=== PATIENT | female | born 1975 | race Two or more races ===

== ENCOUNTER 2017-12-30 09:13 | Emergency (ER) | payer MEDICAID ==
[~2017-12-30] VITALS: Ht 167.6 cm; Wt 97.5 kg
[2017-12-30 10:29] LABS: Basophils # (auto) 0 uL; Basophils % (auto) 0.5 % (0.0-2.0); Eosinophils # (auto) 0 uL; Eosinophils % (auto) 0.7 % (0.0-7.0); Hemoglobin 14.1 g/dL (12.2-16.2); Lymphocytes # (auto) 1.3 uL; Lymphocytes % (auto) 21.3 % (10.0-50.0); Mean Corpuscular Hemoglobin 28.7 pg (28.0-32.0); Mean Corpuscular Hgb Conc. 32.9 g/dL (32.0-36.0); Mean Corpuscular Volume 87.2 fL (80.0-100.0); Monocytes # (auto) 0.6 uL; Monocytes % (auto) 8.7 % (0.0-12.0); Neutrophils # (auto) 4.4 uL; Neutrophils % (auto) 68.8 % (37.0-80.0); Platelet Count (auto) 243 10^3/uL (140-450); Red Blood Cells 4.92 10^6/uL (4.0-5.20); Red Cell Distribution Width 15.8 % (11.8-14.3); White Blood Cell 6.3 10^3/uL (4.4-10.8)
[2017-12-30 10:45] LABS: Urine Specific Gravity 1.022 (1.001-1.035)
[2017-12-30 10:46] LABS: Urine Blood 1+ /uL (Negative)
[2017-12-30 10:53] LABS: Urine WBC 3 /hpf (0 - 5)
[2017-12-30 10:54] LABS: Urine Bacteria MANY /hpf (None Seen); Urine Mucus FEW (None Seen)
[2017-12-30 10:55] LABS: Albumin 3.8 g/dL (3.4-5.0); BUN/Creatinine Ratio 12.7; Calcium 8.8 mg/dL (8.5-10.1); Potassium 3.7 mmol/L (3.5-5.1)
[2017-12-30] MEDS ORDERED: cefTRIAXone W LIDOCAINE 1 GM IM IM ONE (11:00)
[2017-12-30] MEDS ORDERED: cefTRIAXone 1GM/10ml IVPUSH 10 ML IV ONE (11:15)
[2017-12-30 11:56] VITALS: BP 144/89
== END 2017-12-30 12:00 | disposition home or self-care (01) ==
LOC: EDBD 09:13 → ER 09:13
DX: K80.20 Calculus of gallbladder without cholecystitis without obstruction (principal)
CPT/HCPCS: 36415; 74176; 80053; 81001; 81025; 85025; 96374; J0696

== ENCOUNTER 2018-10-25 22:10 | Emergency (ER) | payer MEDICAID ==
[~2018-10-25] VITALS: Ht 162.6 cm; Wt 99.9 kg
[2018-10-25 23:55] LABS: Urine Bacteria FEW /hpf (None Seen); Urine Blood Negative /uL (Negative); Urine Mucus FEW (None Seen); Urine Specific Gravity 1.025 (1.001-1.035); Urine WBC 3 /hpf (0 - 5)
[2018-10-26 00:25] LABS: Basophils # (auto) 0 uL; Basophils % (auto) 0.3 % (0.0-2.0); Eosinophils # (auto) 0 uL; Eosinophils % (auto) 0.6 % (0.0-7.0); Hematocrit 44.7 % (36.0-46.0); Hemoglobin 15.3 g/dL (12.2-16.2); Lymphocytes # (auto) 1.2 uL; Lymphocytes % (auto) 15.4 % (10.0-50.0); Mean Corpuscular Hemoglobin 31.8 pg (28.0-32.0); Mean Corpuscular Hgb Conc. 34.3 g/dL (32.0-36.0); Mean Corpuscular Volume 92.9 fL (80.0-100.0); Monocytes # (auto) 0.5 uL; Monocytes % (auto) 6.6 % (0.0-12.0); Neutrophils # (auto) 6.2 uL; Neutrophils % (auto) 77.1 % (37.0-80.0); Nucleated Red Blood Cells % 0.1 %; Platelet Count (auto) 250 10^3/uL (140-450); Red Blood Cells 4.81 10^6/uL (4.0-5.20); Red Cell Distribution Width 12.7 % (11.8-14.3)
[2018-10-26 00:40] LABS: BUN/Creatinine Ratio 16.5; Calcium 8.4 mg/dL (8.5-10.1); Potassium 4.2 mmol/L (3.5-5.1)
[2018-10-26 00:43] LABS: Bilirubin, Total 0.5 mg/dL (0.2-1.0); Total Protein 8.2 g/dL (6.4-8.2)
[2018-10-26] MEDS ORDERED: ONDANSETRON HCL 4 MG/2 ML VIAL IV ONE (04:30)
[2018-10-26] MEDS ORDERED: MORPHINE SULFATE 4 MG/ML SYR/VIAL IV ONE ×2 (04:30→05:30)
[2018-10-26 04:52] VITALS: BP 129/92
== END 2018-10-26 05:42 | disposition home or self-care (01) ==
LOC: ER 22:10
DX: K80.20 Calculus of gallbladder without cholecystitis without obstruction (principal); Z98.51 Tubal ligation status
CPT/HCPCS: 36415; 74176; 80053; 81001; 83690; 85025; 96374; 96375; 96376; 99284; J2270; J2405

== ENCOUNTER → 2021-10-20 09:11 | Emergency (ER) | payer MEDICAID ==
[~2021-10-20] VITALS: Ht 165.1 cm; Wt 87.1 kg
[~2021-10-20 09:11] MED LIST: ALUM & MAG HYDROX-SIMETH LIQ(MAALOX) 30 ML PO ONE; FAMO20TA10 PO; FAMOTIDINE (10MG/ML) 2ML VL IV ONE; IOHEXOL 300 MG/ML 100ML BOTTLE IJ ONE; MORPHINE SULFATE 4 MG/ML SYR/VIAL IV ONE; ONDA-155 PO; ONDANSETRON HCL 4 MG/2 ML VIAL IV ONE
[2021-10-20 10:48] LABS: Basophils # (auto) 0.1 10 ^3/uL (0-0.2); Basophils % (auto) 1.2 % (0.0-2.0); Eosinophils # (auto) 0.4 10 ^3/uL (0-0.8); Eosinophils % (auto) 5.8 % (0.0-7.0); Hematocrit 44.2 % (36.0-46.0); Hemoglobin 15.4 g/dL (12.2-16.2); Lymphocytes # (auto) 1.9 10 ^3/uL (0.4-5.4); Lymphocytes % (auto) 28.7 % (10.0-50.0); Mean Corpuscular Hemoglobin 31.4 pg (28.0-32.0); Mean Corpuscular Hgb Conc. 34.8 g/dL (32.0-36.0); Mean Corpuscular Volume 90.3 fL (80.0-100.0); Monocytes # (auto) 0.3 10 ^3/uL (0-1.3); Monocytes % (auto) 5.1 % (0.0-12.0); Neutrophils # (auto) 3.8 10 ^3/uL (1.6-8.6); Neutrophils % (auto) 59.2 % (37.0-80.0); Nucleated Red Blood Cells % 0.1 %; Red Blood Cells 4.89 10^6/uL (4.0-5.20); Red Cell Distribution Width 12.8 % (11.8-14.3); White Blood Cell 6.5 10^3/uL (4.4-10.8)
[2021-10-20 10:57] LABS: Albumin 4.1 g/dL (3.4-5.0); Calcium 9.2 mg/dL (8.5-10.1); Magnesium 2.2 mg/dL (1.6-2.6); Potassium 4.1 mmol/L (3.5-5.1)
[2021-10-20 11:01] LABS: Bilirubin, Total 0.6 mg/dL (0.2-1.0); Total Protein 7.9 g/dL (6.4-8.2)
[2021-10-20 12:35] LABS: Urine Bacteria NONE SEEN /hpf (None Seen); Urine Blood TRACE /uL (Negative); Urine Specific Gravity 1.024 (1.001-1.035); Urine WBC 6 /hpf (0 - 5)
[2021-10-20 14:14] VITALS: BP 116/76
== END | disposition home or self-care (01) ==
LOC: ER 09:11
DX: K52.9 Noninfective gastroenteritis and colitis, unspecified (principal); Z98.51 Tubal ligation status
CPT/HCPCS: 36415; 74177; 80053; 81001; 83605; 83690; 83735; 85025; 93005; 96374; 96375; 99285; J2270; J2405; J3490; Q9967

== ENCOUNTER 2022-06-22 12:13 | Emergency (ER) | payer MEDICAID ==
[~2022-06-22] VITALS: Ht 162.6 cm; Wt 91.0 kg
[~2022-06-22 12:13] MED LIST changes: -ALUM & MAG HYDROX-SIMETH LIQ(MAALOX) 30 ML PO ONE; -FAMOTIDINE (10MG/ML) 2ML VL IV ONE; -IOHEXOL 300 MG/ML 100ML BOTTLE IJ ONE; -MORPHINE SULFATE 4 MG/ML SYR/VIAL IV ONE; -ONDANSETRON HCL 4 MG/2 ML VIAL IV ONE
[2022-06-22 13:56] VITALS: BP 156/73
[2022-06-22] MEDS ORDERED: IBUP800T27 PO (14:23)
[2022-06-22] MEDS ORDERED: IBUPROFEN 800 MG TAB PO ONE (14:30)
== END 2022-06-22 14:41 | disposition home or self-care (01) ==
LOC: ER 12:15
DX: S83.92XA Sprain of unspecified site of left knee, initial encounter (principal); M54.42 Lumbago with sciatica, left side; E11.9 Type 2 diabetes mellitus without complications; I10 Essential (primary) hypertension; Z98.51 Tubal ligation status; X50.1XXA Overexertion from prolonged static or awkward postures, initial encounter; Y93.41 Activity, dancing; Y92.89 Other specified places as the place of occurrence of the external cause; Y99.8 Other external cause status
CPT/HCPCS: 73562

== ENCOUNTER 2022-10-22 16:36 | Emergency (ER) | payer MEDICAID ==
[~2022-10-22] VITALS: Ht 162.6 cm; Wt 94.0 kg
[2022-10-22 16:36] VITALS: BP 155/101
[~2022-10-22 16:36] MED LIST changes: +IBUP800T27 PO
[2022-10-22 16:52] LABS: Basophils # (auto) 0.1 10 ^3/uL (0-0.2); Basophils % (auto) 0.7 % (0.0-2.0); Eosinophils # (auto) 0.1 10 ^3/uL (0-0.8); Eosinophils % (auto) 1.7 % (0.0-7.0); Hematocrit 41.8 % (36.0-46.0); Hemoglobin 14.6 g/dL (12.2-16.2); Lymphocytes # (auto) 2.6 10 ^3/uL (0.4-5.4); Mean Corpuscular Hemoglobin 31.7 pg (28.0-32.0); Mean Corpuscular Volume 90.4 fL (80.0-100.0); Monocytes # (auto) 0.4 10 ^3/uL (0-1.3); Monocytes % (auto) 5.2 % (0.0-12.0); Neutrophils # (auto) 4.4 10 ^3/uL (1.6-8.6); Neutrophils % (auto) 58.4 % (37.0-80.0); Nucleated Red Blood Cells % 0.2 %; Red Blood Cells 4.62 10^6/uL (4.0-5.20); Red Cell Distribution Width 12.4 % (11.8-14.3); White Blood Cell 7.5 10^3/uL (4.4-10.8)
[2022-10-22 17:16] LABS: Albumin 3.9 g/dL (3.4-5.0); BUN/Creatinine Ratio 21.1; Potassium 3.8 mmol/L (3.5-5.1)
[2022-10-22 17:18] LABS: Bilirubin, Total 0.4 mg/dL (0.2-1.0); Total Protein 7.5 g/dL (6.4-8.2)
== END 2022-10-22 22:50 | disposition home or self-care (01) ==
LOC: ER 16:36
DX: R07.89 Other chest pain (principal); I10 Essential (primary) hypertension; E11.9 Type 2 diabetes mellitus without complications; Z79.1 Long term (current) use of non-steroidal anti-inflammatories (NSAID); Z79.899 Other long term (current) drug therapy
CPT/HCPCS: 36415; 71045; 80053; 84484; 85025; 93005

== ENCOUNTER 2023-11-11 12:31 | Emergency (ER) | payer MEDICAID ==
[~2023-11-11] VITALS: Ht 167.6 cm; Wt 95.0 kg
[~2023-11-11 12:31] MED LIST changes: +IBUP-1456 PO; -IBUP800T27 PO
[2023-11-11 13:26] VITALS: TEMP 97.9
[2023-11-11 13:38] VITALS: BP 148/81; PULSE 79; RESP 18; O2SAT 98
[2023-11-11] MEDS ORDERED: AMOX500T3 PO (15:34)
[2023-11-11] MEDS ORDERED: BENZ100C97 PO (15:34)
[2023-11-11] MEDS ORDERED: NAP500T PO (15:34)
[2023-11-11] MEDS ORDERED: PROM1SOL4 PO (15:34)
[2023-11-11] MEDS: DexAMETHasone SOD PHOS 10MG/1ML VIAL INJ IM ONE (15:36)
[2023-11-11] MEDS: KETOROLAC TROMETH 60MG/2ML VIAL IM ONE (15:36)
== END 2023-11-11 15:43 | disposition home or self-care (01) ==
LOC: ER 12:31
DX: J02.9 Acute pharyngitis, unspecified (principal); I10 Essential (primary) hypertension; E11.9 Type 2 diabetes mellitus without complications; K80.20 Calculus of gallbladder without cholecystitis without obstruction; Z98.890 Other specified postprocedural states; Z79.899 Other long term (current) drug therapy
CPT/HCPCS: 96372; 99284; J1100; J1885